=== PATIENT | male | born 1945 | race Caucasian/White ===

== ENCOUNTER 2021-10-22 07:26 | Emergency (ER) | payer MEDICARE, OTHER ==
--- NOTE | 2021-10-22 07:40 | ED Physician Documentation ---
PD HPI LOWER EXT INJURY - Stated complaint Stated Complaint: R LEG INJURY - Chief complaint Chief Complaint: Trauma Ext - History obtained from History obtained from: Patient - History of Present Illness PD HPI LOW EXT INJURY LOCATION: Right, Lower leg Type of injury: Blunt / blow (he states his footing slipped and his leg went between boat gunwale and dock, with pressure/impact on lateral right lower leg. Pain and swelling ensued, but has gotten tighter and bruised today, with softened skin at the apex of the hematoma. No open drainage.) Where injury occurred: Other ([place]) Timing - onset: Yesterday Timing - details: Abrupt onset, Still present (has increased in swelling and bruising purple color overnight.) Worsened by: Moving (walking hurts.), Palpating Associated symptoms: Swelling, Discolored (brusing purple). No: Weakness, Numbness Contributing factors: Anticoagulated Similar symptoms before: Has not had sx before Review of Systems Musculoskeletal: denies: Neck pain, Back pain Neurologic: denies: Focal weakness, Numbness, Headache, Head injury PD PAST MEDICAL HISTORY - Past Medical History Cardiovascular: Hypertension, High cholesterol, Atrial fibrillation Respiratory: None Endocrine/Autoimmune: Type 2 diabetes - Present Medications Home Medications: Ambulatory Orders Medication Instructions Recorded Confirmed Liraglutide [Victoza 2-Gene] 1.8 mg SQ DAILY 10/22/21 10/22/21 Losartan [Cozaar] 50 mg PO DAILY 10/22/21 10/22/21 Rosuvastatin Calcium [Crestor] 20 mg PO HS 10/22/21 10/22/21 Sotalol [Betapace] 80 mg PO BID 10/22/21 10/22/21 Tadalafil [Cialis] 5 mg PO DAILY 10/22/21 10/22/21 Tamsulosin [Flomax] 0.4 mg PO DAILY 10/22/21 10/22/21 Warfarin [Coumadin] 5 mg PO DAILY 10/22/21 10/22/21 amLODIPine [Norvasc] 10 mg PO DAILY 10/22/21 10/22/21 metFORMIN [Glucophage] 1,000 mg PO BIDWM 10/22/21 10/22/21 - Allergies Allergies/Adverse Reactions: Allergies Allergy/AdvReac Type Severity Reaction Status Date / Time No Known Drug Allergies Allergy Verified 10/22/21 07:31 PD ED PE NORMAL - Vitals Vital signs reviewed: Yes - General General: Alert and oriented X 3, No acute distress, Well developed/nourished - Back Back: No spinal TTP - Derm Derm: Normal color, Warm and dry - Extremities Extremities: Other (The right lower leg on the lateral mid fibular area shows firmness and tenderness in the soft tissue consistent with hematoma. There is purpleish coloring. It does have a apex that has some softer skin but no breakdown of the skin. The posterior calf is nontender.) - Neuro Neuro: Alert and oriented X 3, No motor deficit, No sensory deficit, Normal speech Results - Vitals Vitals: Vital Signs - 24 hr 10/22/21 10/22/21 07:32 08:41 Temperature 36.6 C Heart Rate 72 66 Respiratory 16 16 Rate Blood Pressure 159/69 H 139/77 H O2 Saturation 100 95 Oxygen O2 Source Room air - Labs Labs: Laboratory Tests 10/22/21 08:17 INR (Fingerstick) 2.7 H - Rads (name of study) right tib/bfib Radiology: Prelim report reviewed (prior surgical hardward intact. No fractures. ), See rad report PD MEDICAL DECISION MAKING - ED course Complexity details: reviewed results, considered differential (Hematoma in the lower leg from direct local injury. Discussed with the patient the common treatment for hematomas. This included local pressure with Donald wrap elevate and ice today and then transitioning to heat for absorption over the next couple of weeks.), d/w patient Departure - Departure Disposition: 01 Home, Self Care Clinical Impression: Hematoma, Anticoagulant long-term use Contusion, lower leg Qualifiers: Encounter type: initial encounter Laterality: right Qualified Code(s): S80.11XA - Contusion of right lower leg, initial encounter Condition: Stable Record reviewed to determine appropriate education?: Yes Instructions: ED Hematoma Follow-Up: STEF WARREN MD [Primary Care Provider] - Comments: Your INR today is 2.7; I think it is okay to continue your Coumadin as usual. Your x-ray is normal without any signs of fracture or disruption of your prior hardware. A collection of blood within the tissue such as you have is called a hematoma. This would reflect some injury to the muscle most likely with some bleeding in the area. With gravity that area of bruising is going to mariscal down the side of the leg and even show up in the foot and ankle over several days. At this point we typically leave the hematoma intact even though it is pressurized. The pressure is actually keeping it from bleeding more at this point. For today I would use some cool towels or ice periodically to the area. Over the next week or so I would have an Donald wrap on it commonly when you are up and around and during the day to help reduce swelling. If the hematoma remains firm and tender after a week or 2, consideration can could be to try to evacuate the hematoma so it is not continuing pressure in the area. We typically do not do that right away since most of these will absorb and resolve over time and the pressure in there again is actually tamponading or preventing further bleeding at the moment. Try to minimize prolonged walking etc. for the next several days to week but light walking and activity is okay and preferred. Add Tylenol if needed for pains. Recheck if you develop pain swelling or tenderness in the back of the calf or up the thigh or any redness warmth or drainage from the hematoma site.
[2021-10-22] MEDS ORDERED: ACETAMINOPHEN 325 MG TABLET PO STA (07:57)
--- NOTE | 2021-10-22 08:29 | XRAY Report ---
PROCEDURE: Tib/Fib RT INDICATIONS: struck right lateral lower leg with bruising TECHNIQUE: 2 views of the tibia and fibula were acquired. COMPARISON: None. FINDINGS: Bones: Old distal tibial and fibular fractures with internal fixation. No acute fractures or disloca tion. No fractures or dislocations. No suspicious bony lesions. Soft tissues: Soft tissue edema consistent with contusion. No suspicious soft tissue calcifications or masses. Extensive atherosclerosis. IMPRESSION: 1. No acute osseous amenities. 2. Old distal tibia and fibular fractures with internal fixation. 3. Severe atherosclerosis. Reviewed by: Mata Crisostomo MD on 10/22/2021 8:28 AM PDT Approved by: Mata Crisostomo MD on 10/22/2021 8:28 AM PDT Station ID: [id number]
[2021-10-22 08:42] VITALS: BP 139/77
== END 2021-10-22 08:47 | disposition home or self-care (01) ==
LOC: ED 07:26
DX: S80.11XA Contusion of right lower leg, initial encounter (principal); W23.0XXA Caught, crushed, jammed, or pinched between moving objects, initial encounter; I10 Essential (primary) hypertension; E11.9 Type 2 diabetes mellitus without complications; Z79.84 Long term (current) use of oral hypoglycemic drugs; I48.91 Unspecified atrial fibrillation; Z79.01 Long term (current) use of anticoagulants
CPT/HCPCS: 73590; 85610; 99282; 99284; A9270